=== PATIENT | male | born 1990 | race Caucasian/White ===

== ENCOUNTER 2021-03-02 03:27 | Emergency (ER) | payer OTHER, MEDICAID, SELFPAY ==
[2021-03-02] VITALS (13 sets, daily range): BP systolic 115–157; BP diastolic 68–81; PULSE 83–110; RESP 13–30; TEMP 37; O2SAT 96–100; BMI 27.7
--- NOTE | 2021-03-02 03:38 | DI.RAD.S_ITS ---
PROCEDURE: XR CHEST 2V INDICATIONS: cough, hemoptysis TECHNIQUE: 2 views of the chest were acquired. COMPARISON: None. FINDINGS: Surgical changes and devices: None. Lungs and pleura: Diffuse bilateral lung opacities with central prominence.. No pleural effusions or pneumothorax. Mediastinum: Mediastinal contours are normal. Heart size is normal. Bones and chest wall: No suspicious bony abnormalities. Soft tissues appear unremarkable. IMPRESSION: Bilateral lung multilobar pneumonia. Dictated by: Stella Whipple MD, PhD on 03/02/2021 at 7:32 Approved by: Stella Whipple MD, PhD on 03/02/2021 at 7:32
[2021-03-02 04:06] LABS: COVID19 -Nasal RAPID Negative (Negative)
[2021-03-02 04:10] LABS: Add Manual Diff / Slide Review NO; Basophils Absolute Auto 0 /uL (0-100); Basophils Percent Auto 0.3 % (0-2); Eosinophils Absolute Auto 200 /uL (0-450); Eosinophils Percent Auto 1.5 % (2-4); Hematocrit 43.5 % (41-53); Hemoglobin 14.5 g/dL (13.5-17.5); Lymphocytes Absolute Auto 2600 /uL (1100-4500); Lymphocytes Percent Auto 21.7 % (25-40); Mean Corpuscular HGB Conc 33.4 % (30-36); Mean Corpuscular Hemoglobin 29.1 PG (26-34); Mean Corpuscular Volume 87.1 fL (80-100); Monocytes Absolute Auto 1100 /uL (0-900); Monocytes Percent Auto 9.1 % (3-14); Neutrophils Absolute Auto 8000 /uL (1500-7000); Neutrophils Percent Auto 67.4 % (50-75); Platelet Count 200 X10^3/uL (150-400); Red Blood Cell Count 4.99 X10^6/uL (4.5-5.9); Red Cell Distribution Width 12.8 % (11.6-14.8); White Blood Cell Count 11.8 X10^3/uL (4.5-11.0)
[2021-03-02 04:17] LABS: D Dimer 554 ng/mL (<230)
[2021-03-02 04:22] LABS: Alanine Aminotransferase 34 IU/L (<50); Albumin Globulin Ratio 1.4 (1.0-2.8); Alkaline Phosphatase 78 U/L (38-126); Aspartate Aminotransferase 32 IU/L (17-59); BUN Creatinine Ratio 16.3 (6-22); Blood Urea Nitrogen 13 mg/dL (9-20); Carbon Dioxide 35 mmol/L (22-32); Chloride 95 mmol/L (98-107); Creatine Kinase 115 U/L (55-170); Estimated Glomerular Filt Rate > 60.0 mL/min (>60); Globulin 2.9 g/dL (1.7-4.1); Glucose 102 mg/dL (70-100); HEMOLYSIS < 15 (0-50); Potassium 3.8 mmol/L (3.4-5.1); Sodium 135 mmol/L (137-145); Total Protein 6.9 g/dL (6.3-8.2)
--- NOTE | 2021-03-02 04:29 | ED_ITS ---
HPI - SOB/Dyspnea General Chief Complaint: Shortness of Breath/Dyspnea Stated Complaint: coughing up blood x2 days Time Seen by Provider: 03/02/21 03:38 Source: patient Mode of arrival: Ambulatory Limitations: no limitations History of Present Illness HPI Narrative: 30M daily smoker with history of smoking opioids presents with a chief complaint of about 24 hours of severe shortness of breath, cough and hemoptysis. He states that he overdosed yesterday while using illicit drugs in his truck. He woke surrounded by EMS and police and had been given a large dose of Narcan. He was not taken to [facility] and soon thereafter started developing significant shortness of breath and felt like he was drowning. He was coughing and has produced a large amount of blood. He has had some improvement over the past day or so presents to us under these circumstances. He denies any chest pain. He has had no fever or chills. He has no nausea or vomiting Related Data Previous Rx's Medication Instructions Recorded furosemide 20 mg tablet (Lasix) 20 mg PO DAILY #7 tab 03/02/21 Allergies Allergy/AdvReac Type Severity Reaction Status Date / Time No Known Drug Allergies Allergy Verified 03/02/21 03:42 Review of Systems Review of Systems Narrative: GENERAL: Denies chills, fatigue, malaise, fever, sweats. HEENT: Denies sinus pain, ear pain, sore throat, difficulty swallowing, dizziness. RESPIRATORY: See HPI CARDIOVASCULAR: Denies chest pain, palpitations, orthopnea, edema, GASTROINTESTINAL: Denies nausea, vomiting, abdominal pain, diarrhea, constipation, melena. : Denies dysuria, frequency, incontinence, hematuria, urinary retention. MUSCULOSKELETAL: denies weakness, joint pain, or bony pain SKIN: Denies rash, skin lesions, or other NEUROLOGIC: Denies weakness, headache, numbness, change in speech, confusion, seizures, incoordination. PSYCHIATRIC: No concerning psychosocial issues. 12 point review of systems is negative except for those stated above Patient History Social History Smoking Status: Current every day smoker Smoking Status: Current every day smoker alcohol intake frequency: 0-2 drinks per day Substance Use Type: marijuana and heroin Exam Narrative Exam Narrative: GENERAL: 30 [] year old patient appears stated age. Well- developed patient, in mild distress. HEAD: Atraumatic. Normocephalic. EYES: Pupils equal round and reactive. Extraocular motions intact. No scleral icterus. No injection or drainage. ENT: Nose without bleeding, purulent drainage. Throat without erythema, tonsillar hypertrophy or exudate. Airway patent. NECK: Trachea midline. Non tender CARDIOVASCULAR: Regular rate and rhythm without murmurs, gallops, or rubs. RESPIRATORY: Faint crackles in bilateral bases, no significant increased work of breathing GASTROINTESTINAL: Abdomen soft, non-tender, nondistended. EXTREMITIES: No edema or joint tenderness. BACK: Nontender without deformity or crepitance. No flank tenderness. NEURO: AOx3. SKIN: No rash or erythema of visible areas Initial Vital Signs Initial Vital Signs: Vital Signs Temperature 98.6 F 03/02/21 03:38 Pulse Rate 108 H 03/02/21 03:38 Respiratory Rate 30 H 03/02/21 03:38 Blood Pressure 130/71 03/02/21 03:38 Pulse Oximetry 97 03/02/21 03:38 Course Orders Ordered: Discontinued Medications Furosemide (Furosemide 40 Mg/4 Ml Vial) 40 mg IV NOW ONE Stop: 03/02/21 04:30 Last Admin: 03/02/21 04:53 Dose: 40 mg Documented by: AGUSTINA Nitroglycerin (Nitroglycerin Oint 1 Inch/Gm Oint...G.) 1 inch TOP NOW ONE Stop: 03/02/21 04:30 Last Admin: 03/02/21 04:53 Dose: 1 inch Documented by: AGUSTINA Vital Signs Vital signs: Vital Signs - 8 hr 03/02/21 03:38 03/02/21 04:50 03/02/21 04:53 Temperature 98.6 F Pulse Rate 108 H 83 96 H Respiratory Rate 30 H 20 Blood Pressure 130/71 117/73 130/75 Pulse Oximetry 97 100 03/02/21 05:05 03/02/21 05:06 03/02/21 05:15 Temperature Pulse Rate 83 83 90 Respiratory Rate 28 H 27 H 22 Blood Pressure 117/73 122/75 Pulse Oximetry 100 100 100 03/02/21 05:30 03/02/21 05:45 03/02/21 06:12 Temperature Pulse Rate 85 84 99 H Respiratory Rate 22 24 18 Blood Pressure 122/75 117/74 125/81 Pulse Oximetry 100 100 99 03/02/21 06:15 03/02/21 06:30 03/02/21 06:45 Temperature Pulse Rate 96 H 92 H 95 H Respiratory Rate 13 24 13 Blood Pressure 157/81 H 125/70 115/68 Pulse Oximetry 99 98 99 03/02/21 06:59 Temperature Pulse Rate 110 H Respiratory Rate 22 Blood Pressure Pulse Oximetry 96 MDM - SOB/Dyspnea Lab Data Result diagrams: 03/02/21 03:58 03/02/21 03:58 Labs: Lab Results 03/02/21 03/02/21 03/02/21 Range/Units 03:45 03:58 03:58 WBC 11.8 H (4.5-11.0) X10^3/uL RBC 4.99 (4.5-5.9) X10^6/uL Hgb 14.5 (13.5-17.5) g/dL Hct 43.5 (41-53) % MCV 87.1 (80-100) fL MCH 29.1 (26-34) PG MCHC 33.4 (30-36) % RDW 12.8 (11.6-14.8) % Plt Count 200 (150-400) X10^3/uL Neut % (Auto) 67.4 (50-75) % Lymph % (Auto) 21.7 L (25-40) % [place] % (Auto) 9.1 (3-14) % Eos % (Auto) 1.5 L (2-4) % Baso % (Auto) 0.3 (0-2) % Neut # (Auto) 8000 H (8806-2130) /uL Lymph # (Auto) 2600 (7239-3319) /uL [place] # (Auto) 1100 H (0-900) /uL Eos # (Auto) 200 (0-450) /uL Baso # (Auto) 0 (0-100) /uL D-Dimer 554 H (<230) ng/mL Sodium (137-145) mmol/L Potassium (3.4-5.1) mmol/L Chloride (98-107) mmol/L Carbon Dioxide (22-32) mmol/L BUN (9-20) mg/dL Creatinine (0.66-1.25) mg/dL Estimated GFR (>60) mL/min BUN/Creatinine Ratio (6-22) Glucose (70-100) mg/dL Calcium (8.4-10.2) mg/dL Total Bilirubin (0.2-1.3) mg/dL AST (17-59) IU/L ALT (<50) IU/L Alkaline Phosphatase (38-126) U/L Total Creatine Kinase (55-170) U/L CK-MB (CK-2) (<2.37) ng/mL CK-MB (CK-2) Rel Index (1.5-5.0) % Troponin I (0.01-0.034) ng/mL NT-Pro-B Natriuret Pep (<125) pg/mL Total Protein (6.3-8.2) g/dL Albumin (3.5-5.0) g/dL Globulin (1.7-4.1) g/dL Albumin/Globulin Ratio (1.0-2.8) Procalcitonin (<0.5) ng/mL SARS-CoV-2 (PCR) Negative (Negative) 03/02/21 03/02/21 Range/Units 03:58 03:58 WBC (4.5-11.0) X10^3/uL RBC (4.5-5.9) X10^6/uL Hgb (13.5-17.5) g/dL Hct (41-53) % MCV (80-100) fL MCH (26-34) PG MCHC (30-36) % RDW (11.6-14.8) % Plt Count (150-400) X10^3/uL Neut % (Auto) (50-75) % Lymph % (Auto) (25-40) % [place] % (Auto) (3-14) % Eos % (Auto) (2-4) % Baso % (Auto) (0-2) % Neut # (Auto) (5805-2322) /uL Lymph # (Auto) (5186-3209) /uL [place] # (Auto) (0-900) /uL Eos # (Auto) (0-450) /uL Baso # (Auto) (0-100) /uL D-Dimer (<230) ng/mL Sodium 135 L (137-145) mmol/L Potassium 3.8 (3.4-5.1) mmol/L Chloride 95 L (98-107) mmol/L Carbon Dioxide 35 H (22-32) mmol/L BUN 13 (9-20) mg/dL Creatinine 0.80 (0.66-1.25) mg/dL Estimated GFR > 60.0 (>60) mL/min BUN/Creatinine Ratio 16.3 (6-22) Glucose 102 H (70-100) mg/dL Calcium 9.0 (8.4-10.2) mg/dL Total Bilirubin 1.0 (0.2-1.3) mg/dL AST 32 (17-59) IU/L ALT 34 (<50) IU/L Alkaline Phosphatase 78 (38-126) U/L Total Creatine Kinase 115 (55-170) U/L CK-MB (CK-2) 2.56 H (<2.37) ng/mL CK-MB (CK-2) Rel Index 2.2 (1.5-5.0) % Troponin I < 0.012 (0.01-0.034) ng/mL NT-Pro-B Natriuret Pep 43 (<125) pg/mL Total Protein 6.9 (6.3-8.2) g/dL Albumin 4.0 (3.5-5.0) g/dL Globulin 2.9 (1.7-4.1) g/dL Albumin/Globulin Ratio 1.4 (1.0-2.8) Procalcitonin 0.17 (<0.5) ng/mL SARS-CoV-2 (PCR) (Negative) Imaging Data Chest x-ray: Radiologist's Impression: [address] [address] XRay Report Signed Patient: Camilo Montiel MR#: [id number] : 1990 Acct:[id number] Age/Sex: 30 / M Date of Service: 03/02/21 Loc: ED Accession Number: [id number] ?? Procedure: XR chest 2V Ordering Provider: Nikolas Agrawal D.O. PROCEDURE:? XR CHEST 2V ? INDICATIONS:? cough, hemoptysis ? TECHNIQUE:? 2 views of the chest were acquired.? ? COMPARISON:? None. ? FINDINGS:? ? Surgical changes and devices:? None.? ? Lungs and pleura:? Diffuse bilateral lung opacities with central prominence..? No pleural effusions or pneumothorax.? ? Mediastinum:? Mediastinal contours are normal.? Heart size is normal.? ? Bones and chest wall:? No suspicious bony abnormalities.? Soft tissues appear unremarkable.? ? IMPRESSION:? Bilateral lung multilobar pneumonia. ? ? Dictated by: Stella Whipple MD, PhD on 03/02/2021 at 7:32 ? ? CT scan - chest: Radiologist's Impression: [address] [address] [address] Scan Report Signed Patient: Camilo Montiel MR#: [id number] : 1990 Acct:[id number] Age/Sex: 30 / M Date of Service: 03/02/21 Loc: ED Accession Number: [id number] ?? Procedure: CT angio chest PE protocol Ordering Provider: Nikolas Agrawal D.O. PROCEDURE:? CT ANGIO CHEST PE PROTOCOL ? INDICATIONS:? Shortness of breath, hypoxia, hemoptysis, critical D Dimer ? TECHNIQUE:? After the administration of intravenous contrast, 2 mm thick sections acquired from the pulmonary apices to the posterior costophrenic angles.? 3-dimensional maximum intensity projection (MIP) coronal and sagittal reformats were then acquired through the thorax.? For radiation dose reduction, the following was used:? automated exposure control, adjustment of mA and/or kV according to patient size.? ? COMPARISON:? [facility], CR, XR CHEST 2V, 03/02/2021, 3:37. ? FINDINGS:? Image quality:? Excellent.? ? Pulmonary arteries:? Pulmonary arteries are normal in size, and demonstrate no intraluminal filling defects to suggest central pulmonary embolism.? ? Lungs and pleura:? Patchy consolidation and ground-glass opacities noted in the lungs bilaterally.? No pleural effusions or pneumothorax.? Central and peripheral airways are patent.? ? Mediastinum:? Heart size is normal, without pericardial effusion.? No mediastinal or hilar adenopathy.? Thoracic aorta is normal in caliber and enhancement.? Esophagus is normal in caliber, without hiatal hernia.? ? Bones and chest wall:? No suspicious bony lesions.? Ribs and thoracic spine appear intact throughout.? Thyroid gland is within normal limits.? No axillary or supraclavicular adenopathy.? ? Abdomen:? Visualized upper abdominal solid organs appear normal in the early arterial phase of enhancement.? ? IMPRESSION:? ? 1. No pulmonary embolus. ? 2. Bilateral lung multilobar pneumonia.? ? ? Dictated by: Stella Whipple MD, PhD on 03/02/2021 at 7:27 ? ? Approved by: Stella Whipple MD, PhD on 03/02/2021 at 7:29 ? MDM Narrative Medical decision making narrative: Patient feeling much better after above stated therapies. No need for supplemental oxygen. Chest x-ray and CT both demonstrated large amount of bilateral lung disease, official reads was suggest pneumonia, however patient has no production of off color sputum, no fever, and proceed calcitonin is unremarkable. Patient had no respiratory symptoms prior to his overdose and I am highly suspect that he had a large catecholamine surge after all the Narcan and will we are seeing is a result of a large amount of pulmonary edema. Extensive discussion with the patient about need for follow- up, and return precautions. He is very receptive, wants help and assures me he will take the steps as given Discharge Plan Departure Patient Disposition: Home Clinical Impression: Cough with hemoptysis Dyspnea Qualifiers: Dyspnea type: dyspnea on exertion Qualified Code(s): R06.00 - Dyspnea, unspecified Instructions: Acute Respiratory Distress Syndrome Activity Restrictions/Additional Instructions: *You have been diagnosed with [shortness of breath, cough and hemoptysis, most likely due to pulmonary edema as a consequence of a large Narcan dose from opioid overdose *What to do: *Please continue to take your regular medications as directed. [ ] New medication prescriptions sent to your pharmacy: [ ] [x ] New medication written as a paper prescription [ ] No new medications given *Please follow up with your primary care provider in 2-3 days, call for an appointment. Let them know you were seen in the Emergency Department and that we ask that you be seen in follow up. We will electronically transmit a record of today's note if your PCP is in our system *If you do not have a primary care provider please contact the [facility] Resource line at [phone]. They will ask some questions about your medical history and help get you set up with a doctor in the community. *Return to Emergency Department if you should have any new, worsening or concerning symptoms, such as [fever greater than 101 F, shaking chills, worsening pain, persistent vomiting or other bothersome symptoms] Prescriptions: New furosemide [Lasix] 20 mg tablet 20 mg PO DAILY Qty: 7 RF: 0 Referrals: [facility] [Outside]
[2021-03-02 04:35] LABS: NT-proBNP (BNP-Adult 18+) 43 pg/mL (<125); Troponin I < 0.012 ng/mL (0.01-0.034)
[2021-03-02 04:38] LABS: CKMB % Relative Index 2.2 % (1.5-5.0); Creatine Kinase MB 2.56 ng/mL (<2.37)
[2021-03-02 04:40] LABS: Procalcitonin 0.17 ng/mL (<0.5)
[2021-03-02] MEDS: NITROGLYCERIN OINT 1 INCH/GM OINT...G. TOP (04:53)
[2021-03-02] MEDS: FUROSEMIDE 40 MG/4 ML VIAL IV (04:53)
--- NOTE | 2021-03-02 05:26 | DI.CT.S_ITS ---
PROCEDURE: CT ANGIO CHEST PE PROTOCOL INDICATIONS: Shortness of breath, hypoxia, hemoptysis, critical D Dimer TECHNIQUE: After the administration of intravenous contrast, 2 mm thick sections acquired from the pulmonary apices to the posterior costophrenic angles. 3-dimensional maximum intensity projection (MIP) coronal and sagittal reformats were then acquired through the thorax. For radiation dose reduction, the following was used: automated exposure control, adjustment of mA and/or kV according to patient size. COMPARISON: [facility], CR, XR CHEST 2V, 03/02/2021, 3:37. FINDINGS: Image quality: Excellent. Pulmonary arteries: Pulmonary arteries are normal in size, and demonstrate no intraluminal filling defects to suggest central pulmonary embolism. Lungs and pleura: Patchy consolidation and ground-glass opacities noted in the lungs bilaterally. No pleural effusions or pneumothorax. Central and peripheral airways are patent. Mediastinum: Heart size is normal, without pericardial effusion. No mediastinal or hilar adenopathy. Thoracic aorta is normal in caliber and enhancement. Esophagus is normal in caliber, without hiatal hernia. Bones and chest wall: No suspicious bony lesions. Ribs and thoracic spine appear intact throughout. Thyroid gland is within normal limits. No axillary or supraclavicular adenopathy. Abdomen: Visualized upper abdominal solid organs appear normal in the early arterial phase of enhancement. IMPRESSION: 1. No pulmonary embolus. 2. Bilateral lung multilobar pneumonia. Dictated by: Stella Whipple MD, PhD on 03/02/2021 at 7:27 Approved by: Stella Whipple MD, PhD on 03/02/2021 at 7:29
== END 2021-03-02 07:12 | disposition home or self-care (01) ==
PROVIDERS: Emergency Provider Emergency Medicine
DX: R06.00 Dyspnea, unspecified (principal); R04.2 Hemoptysis; R05.9 Cough, unspecified; Z20.822 Contact with and (suspected) exposure to COVID-19
CPT/HCPCS: 36415; 71046; 71275; 80053; 82550; 82553; 83880; 84145; 84484; 85025; 85379; 87635; 93005; 93010; 96374; 99285; C9803; J1940; Q9967

== ENCOUNTER 2021-03-19 11:30 | Emergency (ER) | payer OTHER, MEDICAID, SELFPAY ==
[2021-03-19 11:30] VITALS: BP 129/66; PULSE 84; RESP 14; TEMP 36.2; O2SAT 99; BMI 26.6
== END 2021-03-19 14:32 | disposition left against medical advice (07) ==
CPT/HCPCS: 99281

== ENCOUNTER 2021-03-25 14:33 | Emergency (ER) | payer OTHER, MEDICAID, SELFPAY ==
[2021-03-25 14:53] VITALS: BP 116/72; PULSE 99; RESP 14; TEMP 36.8; O2SAT 100; BMI 27.7
--- NOTE | 2021-03-25 15:37 | ED.WOUNDLAC ---
HPI - Wound/Laceration <Paco Miranda PA-C - Last Filed: 03/25/21 19:13> General Chief Complaint: Wound/Laceration Stated Complaint: Thinks MRSA Infection, Hands and Face Time Seen by Provider: 03/25/21 14:49 Source: patient Mode of arrival: Ambulatory Limitations: no limitations History of Present Illness HPI narrative: Patient is a 30-year-old male presenting to the emergency department today for an evaluation of a right index finger infection that he noticed 4 days ago. Patient states that he 1st developed a lesion on his left cheek, but he later developed swelling and pain in his right index finger. Additionally, the patient noted the development of swelling and pain on the lateral aspect of his left elbow today. Of note, patient reports 1 episode of MRSA previously. He denies fever, chills, chest pain, shortness of breath, cough, abdominal pain, nausea, vomiting, diarrhea. No other concerns voiced at this time. Related Data Previous Rx's Medication Instructions Recorded furosemide 20 mg tablet (Lasix) 20 mg PO DAILY #7 tab 03/02/21 doxycycline hyclate 100 mg capsule 100 mg PO BID #10 cap 03/25/21 ketorolac 10 mg tablet 10 mg PO TID PRN 5 Days #20 tab 03/25/21 Allergies Allergy/AdvReac Type Severity Reaction Status Date / Time No Known Drug Allergies Allergy Verified 03/25/21 14:53 Review of Systems <Paco Miranda PA-C - Last Filed: 03/25/21 19:13> Constitutional Constitutional: Denies chills, Denies fever(s), Denies lethargy and Denies weakness ENT Ears, Nose, Mouth, and Throat: Denies change in voice, Denies neck pain and Denies sore throat Cardiovascular Cardiovascular: Denies chest pain, Denies irregular heart rhythm, Denies lightheadedness, Denies palpitations, Denies dyspnea, Denies dyspnea on exertion and Denies orthopnea Respiratory Respiratory: Denies cough, Denies dyspnea, Denies dyspnea on exertion and Denies wheezing Gastrointestinal Gastrointestinal: Denies abdominal pain, Denies change in bowel habits, Denies diarrhea, Denies nausea and Denies vomiting Musculoskeletal Musculoskeletal: Denies neck pain Integumentary/Breasts Skin/Breast: Denies pruritus, Reports erythema, Denies rash and Reports wounds Neurologic Neurologic: Denies weakness Endocrine Endocrine: Denies palpitations Allergic/Immunologic Allergic/Immunologic: Denies wheezing Patient History <Paco Miranda PA-C - Last Filed: 03/25/21 19:13> Social History Smoking Status: Current every day smoker Smoking Status: Current every day smoker alcohol intake frequency: holidays/special occasions only Substance Use Type: marijuana and heroin Exam <Paco Miranda PA-C - Last Filed: 03/25/21 19:13> Narrative Exam Narrative: GENERAL: [] year old patient appears stated age. Well-developed patient, in mild distress. HEAD: Atraumatic. Normocephalic. EYES: Pupils equal round and reactive. Extraocular motions intact. No scleral icterus. No injection or drainage. ENT: Nose without bleeding, purulent drainage. Throat without erythema, tonsillar hypertrophy or exudate. Airway patent. NECK: Trachea midline. Non tender CARDIOVASCULAR: Regular rate and rhythm without murmurs, gallops, or rubs. RESPIRATORY: Clear to auscultation. Breath sounds equal bilaterally. No wheezes, rales, or rhonchi. GASTROINTESTINAL: Abdomen soft, non-tender, nondistended. EXTREMITIES: No edema or joint tenderness. BACK: Nontender without deformity or crepitance. No flank tenderness. NEURO: AOx3. SKIN: Erythema, swelling, and scant drainage proximal to the DIP joint of the right 2nd digit with tenderness to palpation. Erythematous an indurated lesion along the lateral aspect the left elbow with scant serous drainage and tenderness to palpation. Swelling and erythema with scant drainage on the left cheek. Initial Vital Signs Initial Vital Signs: Vital Signs Temperature 98.3 F 03/25/21 14:53 Pulse Rate 99 H 03/25/21 14:53 Respiratory Rate 14 03/25/21 14:53 Blood Pressure 116/72 03/25/21 14:53 Pulse Oximetry 100 03/25/21 14:53 <Zi Garcia DO - Last Filed: 03/26/21 07:17> Initial Vital Signs Initial Vital Signs: Vital Signs Temperature 98.3 F 03/25/21 14:53 Pulse Rate 99 H 03/25/21 14:53 Respiratory Rate 14 03/25/21 14:53 Blood Pressure 116/72 03/25/21 14:53 Pulse Oximetry 100 03/25/21 14:53 Course <Paco Miranda PA-C - Last Filed: 03/25/21 19:13> Course Course Narrative: Patient is a 30-year-old male presenting to the emergency department today for an evaluation of a right index finger infection that he noticed 4 days ago. Orders Ordered: Discontinued Medications Ketorolac Tromethamine (Ketorolac 10 Mg Tablet) 10 mg PO NOW ONE Stop: 03/25/21 16:20 Last Admin: 03/25/21 16:26 Dose: 10 mg Documented by: ATAYLOR Lidocaine/Sodium Bicarbonate (Lido 1%/Sod Bicarb 8.4% (10ml) 10 Ml Syringe) 10 ml INJ NOW ONE Stop: 03/25/21 16:16 Last Admin: 03/25/21 16:26 Dose: 10 ml Documented by: ATACHENTEOR Vital Signs Vital signs: Vital Signs - 8 hr 03/25/21 14:53 Temperature 98.3 F Pulse Rate 99 H Respiratory Rate 14 Blood Pressure 116/72 Pulse Oximetry 100 <Zi Garcia DO - Last Filed: 03/26/21 07:17> Orders Ordered: Discontinued Medications Ketorolac Tromethamine (Ketorolac 10 Mg Tablet) 10 mg PO NOW ONE Stop: 03/25/21 16:20 Last Admin: 03/25/21 16:26 Dose: 10 mg Documented by: ATAYLOR Lidocaine/Sodium Bicarbonate (Lido 1%/Sod Bicarb 8.4% (10ml) 10 Ml Syringe) 10 ml INJ NOW ONE Stop: 03/25/21 16:16 Last Admin: 03/25/21 16:26 Dose: 10 ml Documented by: ATACHENTEOR Vital Signs Vital signs: Vital Signs - 8 hr 03/25/21 14:53 Temperature 98.3 F Pulse Rate 99 H Respiratory Rate 14 Blood Pressure 116/72 Pulse Oximetry 100 MDM - Wound/Laceration <Paco Miranda PA-C - Last Filed: 03/25/21 19:13> MDM Narrative Medical decision making narrative: Patient is a 30-year-old male presenting to the emergency department today for an evaluation of a right index finger infection that he noticed 4 days ago. To consider MRSA skin infection. Wound cultures obtained. Digital block performed with lidocaine. Wound on the right index finger was deemed grooved, dressed in Xeroform and gauze bandage prior to discharge. Discussed with patient strict return precautions prior to discharge. Patient was advised to begin oral antibiotic therapy tonight. Discharge Plan Departure Patient Disposition: Home Clinical Impression: Abscess Instructions: DI for Wound Infection Activity Restrictions/Additional Instructions: *You have been diagnosed with wound infection *What to do: *Please continue to take your regular medications as directed. [X] New medication prescriptions sent to your pharmacy: [facility] - Doxycyline, Toradol [ ] New medication written as a paper prescription [ ] No new medications given *Please follow up with your primary care provider in 2-3 days, call for an appointment. Let them know you were seen in the Emergency Department and that we ask that you be seen in follow up. We will electronically transmit a record of today's note if your PCP is in our system *If you do not have a primary care provider please contact the [facility] Resource line at [phone]. They will ask some questions about your medical history and help get you set up with a doctor in the community. *Return to Emergency Department if you should have any new, worsening or concerning symptoms, such as fever greater than 101 F, shaking chills, worsening pain, persistent vomiting, or other bothersome symptoms. Prescriptions: New doxycycline hyclate 100 mg capsule 100 mg PO BID Qty: 10 RF: 0 ketorolac 10 mg tablet 10 mg PO TID PRN (Reason: pain) 5 Days Qty: 20 RF: 0 No Action furosemide [Lasix] 20 mg tablet 20 mg PO DAILY Qty: 7 RF: 0 <Zi Garcia, DO - Last Filed: 03/26/21 07:17> [facility] Dr Garcia Co-Sign Statement: I was available for consultation during this patient's emergency department visit. This chart is signed by myself for administrative purposes only. I did not have direct contact with this patient during this visit. They were seen independently by the APC.
[2021-03-25] MEDS: LIDO 1%/SOD BICARB 8.4% (10ML) 10 ML SYRINGE INJ (16:26)
[2021-03-25] MEDS: KETOROLAC 10 MG TABLET PO (16:26)
== END 2021-03-25 16:51 | disposition home or self-care (01) ==
PROVIDERS: Emergency Provider Physician Assistant
DX: L02.511 Cutaneous abscess of right hand (principal)
CPT/HCPCS: 87070; 87075; 87077; 87147; 87186; 87205; 99283

== ENCOUNTER 2021-05-06 00:57 | Emergency (ER) | payer OTHER, MEDICAID, SELFPAY ==
[2021-05-06 01:15] VITALS: BP 134/82; PULSE 92; RESP 18; TEMP 36.7; O2SAT 100; BMI 27.0
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
[2021-05-06] MEDS: IBUPROFEN 400 MG TABLET 800 MG PO (01:55)
[2021-05-06 02:11] LABS: COVID19 -Nasal RAPID Negative (Negative)
[2021-05-06] MEDS: CLINDAMYCIN 150 MG CAPSULE 300 MG PO (02:35)
[2021-05-06 02:43] VITALS: BP 133/76; PULSE 81; RESP 16; O2SAT 98
== END 2021-05-06 03:02 | disposition home or self-care (01) ==
PROVIDERS: Emergency Provider Emergency Medicine
DX: J02.0 Streptococcal pharyngitis (principal); L02.11 Cutaneous abscess of neck; F17.200 Nicotine dependence, unspecified, uncomplicated; Z86.14 Personal history of Methicillin resistant Staphylococcus aureus infection; Z20.822 Contact with and (suspected) exposure to COVID-19
CPT/HCPCS: 87070; 87075; 87077; 87147; 87186; 87205; 87635; 87880; 99283; C9803

== ENCOUNTER 2021-05-09 13:14 | Emergency (ER) | payer OTHER, MEDICAID, SELFPAY ==
--- NOTE | 2021-05-09 13:40 | ED.GENADULT ---
HPI - General Adult General Chief complaint: Dizziness Stated complaint: DIZZY,LIGHT HEADED Time Seen by Provider: 05/09/21 13:26 Source: patient Mode of arrival: Ambulatory History of Present Illness HPI narrative: Patient is a 30-year-old male. Does have a history of drug abuse. Is homeless. Was seen here couple days ago for an infection on the right side of his neck. He thinks that things have improved. Yesterday he had a couple episodes same with today of a dizzy feeling. Also being lightheaded. Having nausea vomiting associated with that. He thinks that is associated when he looks up. He is having sinus congestion. Is feeling like his ears are full. He denies chest pain. A no shortness of breath. Related Data Previous Rx's Medication Instructions Recorded furosemide 20 mg tablet (Lasix) 20 mg PO DAILY #7 tab 03/02/21 doxycycline hyclate 100 mg capsule 100 mg PO BID #10 cap 03/25/21 clindamycin HCl 300 mg capsule 300 mg PO QID #28 cap 05/06/21 meclizine 25 mg tablet 25 mg PO TID PRN #20 tab 05/09/21 Allergies Allergy/AdvReac Type Severity Reaction Status Date / Time No Known Drug Allergies Allergy Verified 03/25/21 14:53 Review of Systems Constitutional Constitutional: Denies fever(s) ENT Ears, Nose, Mouth, and Throat: Reports system reviewed and no additional complaints, except as documented and Reports as per HPI Cardiovascular Cardiovascular: Reports as per HPI and Reports system reviewed and no additional complaints, except as documented Gastrointestinal Gastrointestinal: Reports as per HPI and Reports system reviewed and no additional complaints, except as documented Integumentary/Breasts Skin/Breast: Reports system reviewed and no additional complaints, except as documented and Reports as per HPI Psychiatric Psychiatric: Reports system reviewed and no additional complaints, except as documented Hematologic/Lymphatic On Anticoagulants: No Allergic/Immunologic Allergic/Immunologic: Reports system reviewed and no additional complaints, except as documented Patient History Medical History Abscess, neck Strep pharyngitis Social History Smoking Status: Current every day smoker Smoking Status: Current every day smoker alcohol intake frequency: holidays/special occasions only Substance Use Type: marijuana and heroin Exam Initial Vital Signs Initial Vital Signs: Vital Signs Temperature 97.7 F 05/09/21 13:41 Pulse Rate 73 05/09/21 13:41 Respiratory Rate 14 05/09/21 13:41 Blood Pressure 129/85 05/09/21 13:41 Pulse Oximetry 100 05/09/21 13:41 Const General: cooperative, comfortable and well developed Limitations: mental status not altered HENMT Head: normal to inspection and normocephalic Ears: TM's normal bilaterally Nose: external nose normal Eyes General: appearance normal, both eyes and all related structures Resp Effort & Inspection: normal respiratory effort Auscultation: clear to auscultation bilaterally Cardio Rate: regular rate Rhythm: regular rhythm Back/Spine/Pelvis Back: normal to inspection Skin Other: In the abscess on the right posterior portion of his neck appears well healed. There is no surrounding erythema. Neuro General: patient alert, patient awake, patient oriented x3 and moves all extremities Cognition: normal cognition Speech: speech normal Gait: normal gait Motor: muscle tone normal throughout Other: Positive Aristides-Hallpike maneuver Extrem General: capillary refill normal Psych Appearance: grossly normal and well kempt Course Orders Ordered: ED Orders 05/09/21 13:37 Basic Metabolic Panel Stat COVID19 -Nasal swab/Pre-Proc Stat Complete Blood Count AUTO DIFF Stat 05/09/21 13:40 EKG-12 Lead Stat Discontinued Medications Meclizine HCl (Meclizine Hcl 12.5 Mg Tablet) 25 mg PO NOW ONE Stop: 05/09/21 14:21 Last Admin: 05/09/21 14:31 Dose: 25 mg Documented by: EDUARD Vital Signs Vital signs: Vital Signs - 8 hr 05/09/21 13:41 Temperature 97.7 F Pulse Rate 73 Respiratory Rate 14 Blood Pressure 129/85 Pulse Oximetry 100 Medical Decision Making Lab Data Lab results reviewed: No I reviewed the patient's lab results. Result diagrams: 05/09/21 13:37 05/09/21 13:37 Labs: Lab Results 05/09/21 05/09/21 05/09/21 Range/Units 13:37 13:37 13:37 WBC 11.8 H (4.5-11.0) X10^3/uL RBC 5.16 (4.5-5.9) X10^6/uL Hgb 14.5 (13.5-17.5) g/dL Hct 42.9 (41-53) % MCV 83.2 (80-100) fL MCH 28.2 (26-34) PG MCHC 33.9 (30-36) % RDW 13.2 (11.6-14.8) % Plt Count 344 (150-400) X10^3/uL Neut % (Auto) 77.6 H (50-75) % Lymph % (Auto) 16.5 L (25-40) % [place] % (Auto) 5.1 (3-14) % Eos % (Auto) 0.3 L (2-4) % Baso % (Auto) 0.5 (0-2) % Neut # (Auto) 9100 H (2492-4524) /uL Lymph # (Auto) 2000 (9463-8348) /uL [place] # (Auto) 600 (0-900) /uL Eos # (Auto) 0 (0-450) /uL Baso # (Auto) 100 (0-100) /uL Sodium 139 (137-145) mmol/L Potassium 4.1 (3.4-5.1) mmol/L Chloride 101 (98-107) mmol/L Carbon Dioxide 32 (22-32) mmol/L BUN 5 L (9-20) mg/dL Creatinine 0.71 (0.66-1.25) mg/dL Estimated GFR > 60.0 (>60) mL/min BUN/Creatinine Ratio 7.0 (6-22) Glucose 113 H (70-100) mg/dL Calcium 9.6 (8.4-10.2) mg/dL SARS-CoV-2 (PCR) Negative (Negative) ECG Data Attestation: I personally reviewed and interpreted this ECG as follows: Prior ECG tracings: not available for review Interpretation: Sinus rhythm Ventricular rate of 75 Normal axis Normal QRS Normal QTC No ST T wave changes MDM Narrative Medical decision making narrative: Patient does have a positional vertigo. Low suspicion for CVA/TIA. Labs are unremarkable. He is scheduled to go to detox. Plain abuse to discharge home with a prescription for meclizine. He was given return precautions and follow-up instructions. He expressed understanding and agreement. Discharge Plan Departure Patient Disposition: Home Clinical Impression: Benign paroxysmal positional vertigo Instructions: Benign Paroxysmal Positional Vertigo Activity Restrictions/Additional Instructions: It is important that she stay hydrated. The medication that you were given a prescription for today is an as-needed medicine for the vertigo. Take it as directed. Contact your primary doctor for a follow-up. Return emergency department for any new or worsening symptoms Prescriptions: New meclizine 25 mg tablet 25 mg PO TID PRN (Reason: dizziness) Qty: 20 0RF No Action doxycycline hyclate 100 mg capsule 100 mg PO BID Qty: 10 0RF furosemide [Lasix] 20 mg tablet 20 mg PO DAILY Qty: 7 0RF clindamycin HCl 300 mg capsule 300 mg PO QID Qty: 28 0RF
[2021-05-09 13:41] VITALS: BP 129/85; PULSE 73; RESP 14; TEMP 36.5; O2SAT 100; BMI 61.1
[2021-05-09 13:50] LABS: Add Manual Diff / Slide Review NO; Basophils Absolute Auto 100 /uL (0-100); Basophils Percent Auto 0.5 % (0-2); Eosinophils Absolute Auto 0 /uL (0-450); Eosinophils Percent Auto 0.3 % (2-4); Hematocrit 42.9 % (41-53); Hemoglobin 14.5 g/dL (13.5-17.5); Lymphocytes Absolute Auto 2000 /uL (1100-4500); Lymphocytes Percent Auto 16.5 % (25-40); Mean Corpuscular HGB Conc 33.9 % (30-36); Mean Corpuscular Hemoglobin 28.2 PG (26-34); Mean Corpuscular Volume 83.2 fL (80-100); Monocytes Absolute Auto 600 /uL (0-900); Monocytes Percent Auto 5.1 % (3-14); Neutrophils Absolute Auto 9100 /uL (1500-7000); Neutrophils Percent Auto 77.6 % (50-75); Platelet Count 344 X10^3/uL (150-400); Red Blood Cell Count 5.16 X10^6/uL (4.5-5.9); Red Cell Distribution Width 13.2 % (11.6-14.8); White Blood Cell Count 11.8 X10^3/uL (4.5-11.0)
[2021-05-09 14:07] LABS: Blood Urea Nitrogen 5 mg/dL (9-20); Calcium 9.6 mg/dL (8.4-10.2); Carbon Dioxide 32 mmol/L (22-32); Chloride 101 mmol/L (98-107); Estimated Glomerular Filt Rate > 60.0 mL/min (>60); Glucose 113 mg/dL (70-100); HEMOLYSIS < 15 (0-50); Potassium 4.1 mmol/L (3.4-5.1); Sodium 139 mmol/L (137-145)
[2021-05-09 14:20] LABS: COVID19 -Nasal RAPID Negative (Negative)
[2021-05-09] MEDS: MECLIZINE HCL 12.5 MG TABLET 25 MG PO (14:31)
[2021-05-09 14:59] VITALS: BP 127/84; PULSE 85; RESP 14; O2SAT 100
== END 2021-05-09 15:01 | disposition home or self-care (01) ==
PROVIDERS: Emergency Provider Emergency Medicine
DX: R42 Dizziness and giddiness (principal); Z59.00 Homelessness unspecified; F17.210 Nicotine dependence, cigarettes, uncomplicated; Z20.822 Contact with and (suspected) exposure to COVID-19
CPT/HCPCS: 36415; 80048; 85025; 87635; 93005; 99283; C9803

== ENCOUNTER 2021-12-08 19:33 | Emergency (ER) | payer OTHER, MEDICAID, SELFPAY ==
[2021-12-08 20:06] VITALS: BP 152/66; PULSE 107; RESP 18; TEMP 36; O2SAT 99; BMI 27.0
[2021-12-08] MEDS: DOXYCYCLINE HYCLATE 100 MG TABLET PO (20:18)
[2021-12-08] MEDS: LIDOCAINE 1% W/EPI 1 ML SUBCUT (20:18)
--- NOTE | 2021-12-08 20:37 | ED_ITS ---
HPI - Skin/Abscess/Foreign Bdy General Chief complaint: Skin/Abscess/Foreign Body Stated complaint: rt lower arm, red, hot, swelling Time Seen by Provider: 12/08/21 20:02 History of Present Illness HPI narrative: 31-year-old male smoker with history of methamphetamine use presents with a chief complaint of pain swelling and redness to the right lateral forearm over the past few days. He denies any injection in this region. He states that he is had no fever or chills but just increasing pain, redness and swelling. Denies any injury or trauma. He is had no runny nose, sore throat or cough and denies any abdominal pain Related Data Previous Rx's Medication Instructions Recorded furosemide 20 mg tablet (Lasix) 20 mg PO DAILY #7 tabs 03/02/21 doxycycline hyclate 100 mg capsule 100 mg PO BID #10 caps 03/25/21 clindamycin HCl 300 mg capsule 300 mg PO QID #28 caps 05/06/21 meclizine 25 mg tablet 25 mg PO TID PRN dizziness #20 tabs 05/09/21 doxycycline hyclate 100 mg tablet 100 mg PO BID #20 tabs 12/08/21 Allergies Allergy/AdvReac Type Severity Reaction Status Date / Time No Known Drug Allergies Allergy Verified 12/08/21 20:13 Review of Systems Review of Systems Narrative: GENERAL: See HPI HEENT: Denies sinus pain, ear pain, sore throat, difficulty swallowing, dizz iness. RESPIRATORY: Denies dyspnea, cough, wheezing, hemoptysis, sputum. CARDIOVASCULAR: Denies chest pain, palpitations, orthopnea, edema, GASTROINTESTINAL: Denies nausea, vomiting, abdominal pain, diarrhea, constipation, melena. : Denies dysuria, frequency, incontinence, hematuria, urinary retention. MUSCULOSKELETAL: See HPI SKIN: The HPI NEUROLOGIC: Denies weakness, headache, numbness, change in speech, confusion, seizures, incoordination. PSYCHIATRIC: No concerning psychosocial issues. 12 point review of systems is negative except for those stated above Patient History Medical History Abscess, neck Strep pharyngitis Social History Smoking Status: Current every day smoker Smoking Status: Current every day smoker alcohol intake frequency: holidays/special occasions only Substance Use Type: marijuana, heroin and methamphetamine Exam Narrative Exam Narrative: GENERAL: [31] year old patient appears stated age. Well-developed patient, in mild distress. HEAD: Atraumatic. Normocephalic. EYES: Pupils equal round and reactive. Extraocular motions intact. No scleral icterus. No injection or drainage. ENT: Nose without bleeding, purulent drainage. Throat without erythema, tonsillar hypertrophy or exudate. Airway patent. NECK: Trachea midline. Non tender CARDIOVASCULAR: Regular rate and rhythm without murmurs, gallops, or rubs. RESPIRATORY: Clear to auscultation. Breath sounds equal bilaterally. No wheezes, rales, or rhonchi. GASTROINTESTINAL: Abdomen soft, non-tender, nondistended. EXTREMITIES: Right lateral forearm with redness, pain and swelling and a 2 x 3 cm area of fluctuance centrally located without any spontaneous draining. He has full range of motion of the hand and wrist and no pain on flexion or extension nor with pronation and supination at the elbow, septic arthritis unlikely. BACK: Nontender without deformity or crepitance. No flank tenderness. NEURO: AOx3. SKIN: No rash or erythema of visible areas Initial Vital Signs Initial Vital Signs: Vital Signs Temperature 96.8 F L 12/08/21 20:06 Pulse Rate 107 H 12/08/21 20:06 Respiratory Rate 18 12/08/21 20:06 Blood Pressure 152/66 H 12/08/21 20:06 Pulse Oximetry 99 12/08/21 20:06 Oxygen Delivery Method 12/08/21 20:06 Procedures Abscess I/D I&D #1: Site: upper extremity Side (if applicable): right Local Anesthetic: lidocaine 1% Amount of anesthesia used (mL): 6 Technique: incised with #11 blade Amount of fluid expressed (mL): 8 Irrigation: Yes Packing used?: none Course Orders Ordered: ED Orders 12/08/21 20:12 Consult to [employer] - [employer] Gun Operator Stat 12/08/21 20:21 Wound Culture and Gram Stain Stat Discontinued Medications Doxycycline Hyclate (Doxycycline Hyclate 100 Mg Tablet) 100 mg PO NOW ONE Stop: 12/08/21 20:10 Last Admin: 12/08/21 20:18 Dose: 100 mg Documented By: [facility] Lidocaine/Epinephrine (Lidocaine 1% W/Epi) 1 ml SUBCUT NOW ONE Stop: 12/08/21 20:10 Last Admin: 12/08/21 20:18 Dose: 1 ml Documented By: [facility] Vital Signs Vital signs: Vital Signs - 8 hr 12/08/21 20:06 Temperature 96.8 F L Pulse Rate 107 H Respiratory Rate 18 Blood Pressure 152/66 H Pulse Oximetry 99 Oxygen Delivery Method Room Air Discharge Plan Departure Patient Disposition: Home Clinical Impression: Cellulitis of arm, right, Abscess of right arm Instructions: DI for Cellulitis -- Adult, DI for Skin Abscess Activity Restrictions/Additional Instructions: *You have been diagnosed with [right arm abscess with cellulitis and incision and drainage] *What to do: *Please continue to take your regular medications as directed. [x ] New medication prescriptions sent to your pharmacy: [[facility] [ ] New medication written as a paper prescription [ ] No new medications given *Please follow up with your primary care provider in 2-3 days, call for an appointment. Let them know you were seen in the Emergency Department and that we ask that you be seen in follow up. We will electronically transmit a record of today's note if your PCP is in our system *If you do not have a primary care provider please contact the [facility] Resource line at [phone]. They will ask some questions about your medical history and help get you set up with a doctor in the community. *Return to Emergency Department if you should have any new, worsening or concerning symptoms Prescriptions: New doxycycline hyclate 100 mg tablet 100 mg PO BID Qty: 20 0RF No Action doxycycline hyclate 100 mg capsule 100 mg PO BID Qty: 10 0RF meclizine 25 mg tablet 25 mg PO TID PRN (Reason: dizziness) Qty: 20 0RF furosemide [Lasix] 20 mg tablet 20 mg PO DAILY Qty: 7 0RF clindamycin HCl 300 mg capsule 300 mg PO QID Qty: 28 0RF Visit Report Forms: Patient Portal/API
--- NOTE | 2021-12-08 20:46 | PC.NURSE ---
I&D performed, moderate amount of puss removed by provider. Culture obtained and sent to lab. Arm cleaned and dressing placed.
== END 2021-12-08 20:47 | disposition home or self-care (01) ==
PROVIDERS: Emergency Provider Emergency Medicine
DX: L03.113 Cellulitis of right upper limb (principal); L02.413 Cutaneous abscess of right upper limb
CPT/HCPCS: 10060; 87070; 87075; 87077; 87147; 87205; 99283

== ENCOUNTER 2021-12-26 23:54 | Emergency (ER) | payer OTHER, MEDICAID, SELFPAY ==
[2021-12-27] VITALS: BP 130/71; PULSE 91; RESP 20; TEMP 36.6; O2SAT 97
--- NOTE | 2021-12-27 01:48 | ED.SKABFB ---
HPI - Skin/Abscess/Foreign Bdy General Chief complaint: Skin/Abscess/Foreign Body Stated complaint: right arm pain Time Seen by Provider: 12/27/21 01:45 Source: patient Mode of arrival: Ambulatory History of Present Illness HPI narrative: Patient is a 31-year-old male with history of methamphetamine abuse presents with right arm redness and swelling. He was seen evaluated here 12/08/2021 after he had an I and D the same location. He was put on a course of doxycycline which she says helped however it back. He denies fever or chills. Did have a bigger and still draining. Related Data Previous Rx's Medication Instructions Recorded furosemide 20 mg tablet (Lasix) 20 mg PO DAILY #7 tabs 03/02/21 doxycycline hyclate 100 mg capsule 100 mg PO BID #10 caps 03/25/21 clindamycin HCl 300 mg capsule 300 mg PO QID #28 caps 05/06/21 meclizine 25 mg tablet 25 mg PO TID PRN dizziness #20 tabs 05/09/21 doxycycline hyclate 100 mg tablet 100 mg PO BID #20 tabs 12/08/21 cephalexin 500 mg capsule 500 mg PO Q8H #30 caps 12/27/21 Allergies Allergy/AdvReac Type Severity Reaction Status Date / Time No Known Drug Allergies Allergy Verified 12/08/21 20:13 Review of Systems Review of Systems Narrative: GENERAL: Denies chills,fever HEENT: Denies throat pain RESPIRATORY: Denies dyspnea, cough, wheezing CARDIOVASCULAR: Denies chest pain, palpitations GASTROINTESTINAL: Denies nausea, vomiting MUSCULOSKELETAL: Denies extremity pain, injury SKIN: See HPI NEUROLOGIC: Denies weakness, dizziness, headache, numbness 8 point review of systems is negative except for those stated above and HPI Patient History Medical History Abscess, neck Strep pharyngitis Social History Smoking Status: Current every day smoker Smoking Status: Current every day smoker alcohol intake frequency: holidays/special occasions only Substance Use Type: marijuana, heroin and methamphetamine Exam Initial Vital Signs Initial Vital Signs: Vital Signs Temperature 97.9 F 12/27/21 00:00 Pulse Rate 91 H 12/27/21 00:00 Respiratory Rate 20 12/27/21 00:00 Blood Pressure 130/71 12/27/21 00:00 Pulse Oximetry 97 12/27/21 00:00 Oxygen Delivery Method 12/27/21 00:00 GENERAL: Well-appearing, well-nourished and in no acute distress. CARDIOVASCULAR: peripheral pulses in tact, cap refill <2 sec RESPIRATORY: No respiratory distress, speaks in full sentences without difficulty EXTREMITIES: Normal range of motion, no clubbing or edema. Neurovascularly intact NEUROLOGICAL: Cranial nerves II through XII grossly intact. Normal gait and speech. SKIN: Right arm erythema 12 cm x 6 cm 2 small areas of drainage no significant fluctuation Course Vital Signs Vital signs: Vital Signs - 8 hr 12/27/21 00:00 Temperature 97.9 F Pulse Rate 91 H Respiratory Rate 20 Blood Pressure 130/71 Pulse Oximetry 97 Oxygen Delivery Method Room Air MDM - Skin/Abscess/Foreign Bdy MDM Narrative Medical decision making narrative: Previous culture shows strep. Will actually put him on Keflex but a new culture is pending. Overall he does not appear septic localized to erythema. No need for new I and D there is really no fluctuation, minimal drainage Discharge Plan Departure Patient Disposition: Home Clinical Impression: Cellulitis Instructions: DI for Cellulitis -- Adult Activity Restrictions/Additional Instructions: *You have been diagnosed with cellulitis *What to do: Do not inject into her arm keep area clean and dry with soap and water *Continue to take medications as directed Keflex 500 mg 3 times a day for 10 days *Follow up with your primary care provider in 2-3 days or call [phone] *Return to ER if you should have redness fever swelling pain or any new, worsening or concerning symptoms Prescriptions: New cephalexin 500 mg capsule 500 mg PO Q8H Qty: 30 0RF No Action doxycycline hyclate 100 mg capsule 100 mg PO BID Qty: 10 0RF meclizine 25 mg tablet 25 mg PO TID PRN (Reason: dizziness) Qty: 20 0RF doxycycline hyclate 100 mg tablet 100 mg PO BID Qty: 20 0RF furosemide [Lasix] 20 mg tablet 20 mg PO DAILY Qty: 7 0RF clindamycin HCl 300 mg capsule 300 mg PO QID Qty: 28 0RF
[2021-12-27] MEDS: cephALEXin 250 MG PREPACK 1 BOTTLE MISC (01:59)
== END 2021-12-27 02:03 | disposition home or self-care (01) ==
PROVIDERS: Emergency Provider Emergency Medicine
DX: L03.113 Cellulitis of right upper limb (principal)
CPT/HCPCS: 87070; 87075; 87077; 87147; 87205; 99281; 99283

== ENCOUNTER 2023-09-09 18:58 | Emergency (ER) | payer OTHER, MEDICAID, SELFPAY ==
[2023-09-09 19:14] VITALS: BP 143/80; PULSE 85; RESP 18; TEMP 36.6; O2SAT 98; BMI 28.8
== END 2023-09-09 20:25 | disposition left against medical advice (07) ==
PROVIDERS: Emergency Provider Emergency Medicine
DX: R22.0 Localized swelling, mass and lump, head (principal)
CPT/HCPCS: 99281

== ENCOUNTER 2024-10-19 18:00 | Observation (INO) | payer OTHER, SELFPAY ==
[2024-10-19 18:16] VITALS: BP 123/72; PULSE 96; RESP 16; TEMP 36.1; O2SAT 100; BMI 25.9
--- NOTE | 2024-10-19 18:37 | DI.US.S_ITS ---
PROCEDURE: US PERIPH VENOUS LOW EXTREM LT INDICATIONS: edema asymetric TECHNIQUE: Real-time imaging, as well as color and pulse Doppler interrogation, were performed of the lower extremity deep veins from the inguinal ligament to the popliteal fossa, with documentation of the visualized calf veins. COMPARISON: None. FINDINGS: The common femoral, femoral, popliteal, and the visualized calf veins are normally compressible, and free of intraluminal thrombus. Color and pulse Doppler demonstrate normal phasic intraluminal flow. There is normal augmentation response to distal compression maneuver. IMPRESSION: No findings of DVT in visualized left lower extremity veins. Dictated by: Jacques Martins M.D. on 10/19/2024 at 20:43 Approved by: Jacques Martins M.D. on 10/19/2024 at 20:43
[2024-10-19 18:55] VITALS: PULSE 100; O2SAT 97
[2024-10-19 18:56] VITALS: BP 121/80; PULSE 102; RESP 16; O2SAT 97
[2024-10-19 19:34] VITALS: TEMP 37.1
[2024-10-19 19:43] LABS: Add Manual Diff / Slide Review NO; Basophils Absolute Auto 0 /uL (0-100); Basophils Percent Auto 0.3 % (0-2); Eosinophils Absolute Auto 0 /uL (0-450); Eosinophils Percent Auto 0.2 % (2-4); Hematocrit 37.5 % (41-53); Hemoglobin 12.9 g/dL (13.5-17.5); Lymphocytes Absolute Auto 1300 /uL (1100-4500); Lymphocytes Percent Auto 11.8 % (25-40); Mean Corpuscular HGB Conc 34.3 % (30-36); Mean Corpuscular Hemoglobin 29.3 PG (26-34); Mean Corpuscular Volume 85.4 fL (80-100); Monocytes Absolute Auto 600 /uL (0-900); Monocytes Percent Auto 5.6 % (3-14); Neutrophils Absolute Auto 9300 /uL (1500-7000); Neutrophils Percent Auto 82.1 % (50-75); Platelet Count 168 X10^3/uL (150-400); Red Blood Cell Count 4.39 X10^6/uL (4.5-5.9); White Blood Cell Count 11.3 X10^3/uL (4.5-11.0)
[2024-10-19 19:47] LABS: Lactate (Lactic Acid) 0.9 mmol/L (0.7-2.1)
[2024-10-19 19:48] LABS: Alanine Aminotransferase 155 IU/L (<50); Albumin 3.7 g/dL (3.5-5.0); Albumin Globulin Ratio 1.2 (1.0-2.8); Alkaline Phosphatase 122 U/L (38-126); Aspartate Aminotransferase 77 IU/L (17-59); BUN Creatinine Ratio 13.8 (6-22); Bilirubin Total 0.6 mg/dL (0.2-1.3); Blood Urea Nitrogen 11 mg/dL (9-20); Calcium 8.5 mg/dL (8.4-10.2); Carbon Dioxide 26 mmol/L (22-32); Chloride 98 mmol/L (98-107); Estimated Glomerular Filt Rate > 60 mL/min (>60); Glucose 118 mg/dL (70-99); HEMOLYSIS < 15 (0-50); Potassium 3.6 mmol/L (3.4-5.1); Sodium 131 mmol/L (137-145); Total Protein 6.7 g/dL (6.3-8.2)
[2024-10-19 20:05] LABS: Procalcitonin 0.156 ng/mL (<0.5)
--- NOTE | 2024-10-19 20:44 | ED_ITS ---
HPI - Skin/Abscess/Foreign Bdy General Chief complaint: Skin/Abscess/Foreign Body Stated complaint: Lt leg pain, celulitis Time Seen by Provider: 10/19/24 18:37 Source: patient Mode of arrival: Ambulatory History of Present Illness HPI narrative: 33-year-old gentleman with a history of methamphetamine and opioid use disorder, smokes, not currently injecting, is interested in treatment and currently has a bed date [facility] within the next weeks. He presents today complaining of increasing pain redness and swelling in the left lower extremity. He does not describe trauma, he has not been injecting in the area no open sores. He is having trouble walking on the leg because it is so painful. He currently does not have stable housing arrangements but is hoping to be able to get to [place] where he can stay with his father. Not complaining of chest pain, low-grade fevers, no nausea vomiting or diarrhea Related Data Previous Rx's Medication Instructions Recorded furosemide 20 mg tablet (Lasix) 20 mg PO DAILY #7 tabs 03/02/21 doxycycline hyclate 100 mg capsule 100 mg PO BID #10 caps 03/25/21 clindamycin HCl 300 mg capsule 300 mg PO QID #28 caps 05/06/21 meclizine 25 mg tablet 25 mg PO TID PRN dizziness #20 tabs 05/09/21 doxycycline hyclate 100 mg tablet 100 mg PO BID #20 tabs 12/08/21 cephalexin 500 mg capsule 500 mg PO Q8H #30 caps 12/27/21 Allergies Allergy/AdvReac Type Severity Reaction Status Date / Time No Known Drug Allergies Allergy Verified 10/19/24 18:16 Review of Systems Review of Systems Narrative: Pertinent positive and negative findings as per HPI Patient History Medical History Abscess, neck Strep pharyngitis Smoking Status: Current every day smoker tobacco type: cigarettes alcohol intake frequency: holidays/special occasions only Exam Initial Vital Signs Initial Vital Signs: Vital Signs Temperature 97.0 F L 10/19/24 18:16 Pulse Rate 96 H 10/19/24 18:16 Respiratory Rate 16 10/19/24 18:16 Blood Pressure 123/72 10/19/24 18:16 Pulse Oximetry 100 10/19/24 18:16 Oxygen Delivery Method Room Air 10/19/24 18:16 General: Healthy appearing, in no acute distress. Able to give a complete and coherent history. Well-nourished well-developed HEENT: Moist mucous membranes, normal sclera with reactive pupils, Respiratory: Lungs are clear to auscultation, no wheezing no rales no rhonchi. Full and symmetrical air movement Cardiac: Mild tachycardia but otherwiseRegular rate and rhythm no murmurs no bruits Abdomen: Soft, nontender, no rebound or guarding, no flank pain Neurologic: Grossly neurologically intact with no obvious asymmetries or abnormalities Extremities: left lower extremity with significant swelling and erythema starting around the ankle extending to the knee with lymphangitic streaking up the thigh. Mild inguinal adenopathy. No obvious abscess appreciated no obvious injection sites appreciated Psych: Cooperative, appropriate insight and affect Course Orders Ordered: ED Orders 10/19/24 18:37 US periph venous low extrem lt Stat 10/19/24 19:25 Complete Blood Count AUTO DIFF Stat Comprehensive Metabolic Panel Stat Lactate (Lactic Acid) Stat Procalcitonin Stat 10/19/24 19:30 Blood Culture Stat Vital Signs Vital signs: Vital Signs - 8 hr 10/19/24 18:16 10/19/24 19:34 Temperature 97.0 F L 98.7 F Pulse Rate 96 H Respiratory Rate 16 Blood Pressure 123/72 Pulse Oximetry 100 Oxygen Delivery Method Room Air MDM - Skin/Abscess/Foreign Bdy Lab Data 10/19/24 19:25 10/19/24 19:25 Labs: Lab Results 10/19/24 Range/Units 19:25 WBC 11.3 H (4.5-11.0) X10^3/uL RBC 4.39 L (4.5-5.9) X10^6/uL Hgb 12.9 L (13.5-17.5) g/dL Hct 37.5 L (41-53) % MCV 85.4 (80-100) fL MCH 29.3 (26-34) PG MCHC 34.3 (30-36) % RDW 13.0 (11.6-14.8) % Plt Count 168 (150-400) X10^3/uL Neut % (Auto) 82.1 H (50-75) % Lymph % (Auto) 11.8 L (25-40) % [place] % (Auto) 5.6 (3-14) % Eos % (Auto) 0.2 L (2-4) % Baso % (Auto) 0.3 (0-2) % Neut # (Auto) 9300 H (9569-4933) /uL Lymph # (Auto) 1300 (4623-5292) /uL [place] # (Auto) 600 (0-900) /uL Eos # (Auto) 0 (0-450) /uL Baso # (Auto) 0 (0-100) /uL Sodium 131 L (137-145) mmol/L Potassium 3.6 (3.4-5.1) mmol/L Chloride 98 (98-107) mmol/L Carbon Dioxide 26 (22-32) mmol/L BUN 11 (9-20) mg/dL Creatinine 0.80 (0.66-1.25) mg/dL Estimated GFR > 60 (>60) mL/min BUN/Creatinine Ratio 13.8 (6-22) Glucose 118 H (70-99) mg/dL Lactate 0.9 (0.7-2.1) mmol/L Calcium 8.5 (8.4-10.2) mg/dL Total Bilirubin 0.6 (0.2-1.3) mg/dL AST 77 H (17-59) IU/L ALT 155 H (<50) IU/L Alkaline Phosphatase 122 (38-126) U/L Total Protein 6.7 (6.3-8.2) g/dL Albumin 3.7 (3.5-5.0) g/dL Globulin 3.0 (1.7-4.1) g/dL Albumin/Globulin Ratio 1.2 (1.0-2.8) Procalcitonin 0.156 (<0.5) ng/mL MDM Narrative Medical decision making narrative: CC: Left lower leg pain and swellingComplicating co-morbidities: housing instability, methamphetamine and fentanyl use disorder Data collected from: patient Social determinants of health that may influence the patients condition: states he has a bed date for rehab with [facility] coming up in the near future Differential considered: cellulitis, sepsis, DVT Exam documented above, pertinent findings include: patient is alert and appropriate. Pain is adequately controlled at this time. Left lower leg is significantly swollen, warm to the touch, lymphangitic streaking, no obvious wound source to explain with the cellulitis started Lab Test results independently reviewed as above. Pertinent findings: CBC shows leukocytosis at 11.3 with neutrophils at 82.1. Minor anemia at 12.9 and 37.5 chemistries are notable for minimally elevated AST and ALT at 77 and 155 respectively procalcitonin is not significantly elevated lactic acid is not elevated Imaging studies independently reviewed: ultrasound of the extremity does not show DVT Treatments: patient will be started on ceftriaxone and vancomycin Discussion: 33-year-old gentleman with left lower extremity cellulitis, lymphangitic streaking not currently showing signs of sepsis but given the degree of erythema and the rapidly progressive lymphangitis, IV antibiotics are indicated. We will plan on hospital admission, care is reviewed with the hospitalist service. Patient does not believe he will have significant issues with withdrawal from either his methamphetamine or his fentanyl. Told him that we are able to help with symptomatic withdrawal should it be required. He does note that over the last 3 days he has had dramatically increasing fatigue to the point that he has been unable to keep his eyes open. He also notes that he has not had any methamphetamine for the last 4 days. Discharge Plan Departure Patient Disposition: Admitted as Observation Clinical Impression: Methamphetamine use disorder, severe, Opioid use disorder Cellulitis Qualifiers: Site of cellulitis: extremity Site of cellulitis of extremity: lower extremity Laterality: left Qualified Code(s): L03.116 - Cellulitis of left lower limb Admit Date/Time: 10/19/24 20:57 Admit Provider: Maxim Johnston
[2024-10-19 21:06] VITALS: BP 123/68; PULSE 87; RESP 16; O2SAT 98
[2024-10-19] MEDS: cefTRIAXone 2,000 MG in SODIUM CHLORIDE 0.9% 100 ML 200 MG IV (21:30)
--- NOTE | 2024-10-19 21:51 | P.HP_ITS ---
History of Present Illness History of Present Illness Date Patient Seen: 10/19/24 Chief complaint: Lt leg pain, celulitis Narrative: 33 y/o with PMH of opiates and methamphetamine use, smoking, prior visits to ER with abscesses and cellulitis or arm and leg, came with left leg swelling, redness and pain. Denies recent injuries or drug injections. It started at ankle and overnight spread up to thigh. Afebrile, not septic. CBC shows leukocytosis at 11.3 with neutrophils at 82.1. Minor anemia at 12.9 and 37.5, minimally elevated AST and ALT at 77 and 155 respectively, procalcitonin is not significantly elevated, lactic acid is not elevated. LLE venous doppler negative for DVT. Admitted to medicine with LLE cellulitis requiring IV antibiotics. [facility] Medical History Abscess, neck Strep pharyngitis Social History household members: none Smoking Status: Current every day smoker alcohol intake: current Meds Home Medications and Allergies Home Medications Medication Instructions Recorded Confirmed Type No Known Home Medications 10/19/24 10/19/24 History Allergies Allergy/AdvReac Type Severity Reaction Status Date / Time No Known Drug Allergies Allergy Verified 10/19/24 18:16 Review of Systems Review of Systems Narrative: General - w/o fever or chills. Malaise. EXT - Lt leg swelling, redness, pain CVS - w/o chest pain RS - w/o shortness of breath Exam Vital Signs (past 8 hours): - 10/19/24 18:16 10/19/24 18:55 10/19/24 18:56 Temperature 97.0 F L Pulse Rate 96 H 100 H 102 H Respiratory Rate 16 Blood Pressure 123/72 Pulse Oximetry 100 97 97 Oxygen Delivery Method Room Air 10/19/24 18:56 10/19/24 19:34 10/19/24 21:06 Temperature 98.7 F Pulse Rate Respiratory Rate 16 Blood Pressure 121/80 123/68 Pulse Oximetry Oxygen Delivery Method 10/19/24 21:06 Temperature Pulse Rate 87 Respiratory Rate 16 Blood Pressure Pulse Oximetry 98 Oxygen Delivery Method Oxygen Delivery Method Room Air Narrative Exam Narrative: General - in no distress Ext - Extensive, circumferential LLE cellulitis with lymphangitic streaks reaching the groin CVS - RRR RS - CTA Neuro - lucid, w/o deficits, mild anxiety Objective Imaging Venous US: Radiologist's impression: No findings of DVT in visualized left lower extremity veins. Labs 10/19/24 19:25 10/19/24 19:25 Labs: Laboratory Results - last 24 hr 10/19/24 19:25 WBC 11.3 H RBC 4.39 L Hgb 12.9 L Hct 37.5 L MCV 85.4 MCH 29.3 MCHC 34.3 RDW 13.0 Plt Count 168 Neut % (Auto) 82.1 H Lymph % (Auto) 11.8 L [place] % (Auto) 5.6 Eos % (Auto) 0.2 L Baso % (Auto) 0.3 Neut # (Auto) 9300 H Lymph # (Auto) 1300 [place] # (Auto) 600 Eos # (Auto) 0 Baso # (Auto) 0 Sodium 131 L Potassium 3.6 Chloride 98 Carbon Dioxide 26 BUN 11 Creatinine 0.80 Estimated GFR > 60 BUN/Creatinine Ratio 13.8 Glucose 118 H Lactate 0.9 Calcium 8.5 Total Bilirubin 0.6 AST 77 H ALT 155 H Alkaline Phosphatase 122 Total Protein 6.7 Albumin 3.7 Globulin 3.0 Albumin/Globulin Ratio 1.2 Procalcitonin 0.156 Assessment & Plan Assessment and plan (1) Left leg cellulitis: Status: Acute (2) Opioid use disorder: Status: Acute (3) Methamphetamine use disorder, severe: Status: Acute (4) Smoker: Status: Acute Assessment & Plan narrative: LLE Cellulitis - extensive - vancomycin, ceftriaxone - elevate leg - pain management problematic due to active opiate use Polysubstance use - most recent, today, fentanyl - apparently has a place in detox center next week - nicotine patch DVT prophylaxis - Lovenox Patient consented to telemedicine, audio-video encounter with RN assisting with exam and electronic stethoscope. Patient located at [place], [place]. Provider located in [place]. Time-Based Coding :: [TOTAL MINUTES] spent with patient and on the chart (including review of chart, obtaining history, exam, reviewing outside data, placing orders, documenting exam and treatment plan, and counseling patient) on [DATE].
[2024-10-19 21:57] VITALS: BMI 27.6
[2024-10-19] MEDS: VANCOMYCIN 2,000 MG/400 ML PIGGYBACK 200 MG IV (22:48)
[2024-10-19 23:05] VITALS: BP 115/79; PULSE 85; RESP 19; TEMP 36.6; O2SAT 98
--- NOTE | 2024-10-19 23:27 | PC.NURSE ---
Pt belongings all given to coordinator (3 bags). pt states the last time he used fentanyl was today around 1400, pt educated on drug substance abuse policy.
[2024-10-20] MEDS: OXYCODONE IR 5 MG TABLET PO (00:31)
[2024-10-20] MEDS: IBUPROFEN 400 MG TABLET PO (00:33)
--- NOTE | 2024-10-20 00:43 | PC.WOUNDPHOT ---
LLE LLE LLE
[2024-10-20] MEDS: OXYCODONE IR 5 MG TABLET 15 MG PO ×3 (02:13→10:07)
[2024-10-20 06:29] LABS: Add Manual Diff / Slide Review NO; Basophils Absolute Auto 100 /uL (0-100); Basophils Percent Auto 0.6 % (0-2); Eosinophils Absolute Auto 100 /uL (0-450); Eosinophils Percent Auto 0.7 % (2-4); Hematocrit 36.3 % (41-53); Hemoglobin 12.5 g/dL (13.5-17.5); Lymphocytes Absolute Auto 1800 /uL (1100-4500); Lymphocytes Percent Auto 18.4 % (25-40); Mean Corpuscular HGB Conc 34.4 % (30-36); Mean Corpuscular Hemoglobin 29.7 PG (26-34); Mean Corpuscular Volume 86.3 fL (80-100); Monocytes Absolute Auto 800 /uL (0-900); Monocytes Percent Auto 8.7 % (3-14); Neutrophils Absolute Auto 6800 /uL (1500-7000); Neutrophils Percent Auto 71.6 % (50-75); Platelet Count 160 X10^3/uL (150-400); Red Cell Distribution Width 13.5 % (11.6-14.8); White Blood Cell Count 9.5 X10^3/uL (4.5-11.0)
[2024-10-20 06:41] LABS: BUN Creatinine Ratio 14.9 (6-22); Blood Urea Nitrogen 11 mg/dL (9-20); Calcium 8.7 mg/dL (8.4-10.2); Carbon Dioxide 29 mmol/L (22-32); Chloride 99 mmol/L (98-107); Estimated Glomerular Filt Rate > 60 mL/min (>60); Glucose 110 mg/dL (70-99); HEMOLYSIS < 15 (0-50); Potassium 3.8 mmol/L (3.4-5.1); Sodium 135 mmol/L (137-145)
[2024-10-20] MEDS: VANCOMYCIN 1,250 MG/250 ML PIGGYBACK 166.667 MG IV (07:47)
[2024-10-20 08:00] VITALS: PULSE 71; RESP 20; TEMP 36.4; O2SAT 99
--- NOTE | 2024-10-20 08:48 | PM.DS.1 ---
History of Present Illness History of Present Illness Date Patient Seen: 10/20/24 Time Patient Seen: 08:48 Chief complaint: Lt leg pain, celulitis Narrative: Per admitting provider, 33 y/o with PMH of opiates and methamphetamine use, smoking, prior visits to ER with abscesses and cellulitis or arm and leg, came with left leg swelling, redness and pain. Denies recent injuries or drug injections. It started at ankle and overnight spread up to thigh. Afebrile, not septic. CBC shows leukocytosis at 11.3 with neutrophils at 82.1. Minor anemia at 12.9 and 37.5, minimally elevated AST and ALT at 77 and 155 respectively, procalcitonin is not significantly elevated, lactic acid is not elevated. LLE venous doppler negative for DVT. Admitted to medicine with LLE cellulitis requiring IV antibiotics. Discharge Providers Provider Date of admission: 10/19/24 20:57 Discharge Date: 10/20/24 Primary care physician: Doctor Vani MD Discharge provider: Shakeel Patel DO Summary Hospital Course Discharge Diagnosis: (1) Left leg cellulitis: (2) Opioid use disorder: (3) Methamphetamine use disorder, severe: (4) Smoker: Hospital Course: Is a 33-year-old male with a past medical history of substance use disorder who presented with an extensive left leg cellulitis. He was given ceftriaxone and vancomycin in the emergency room with rapid improvement in swelling, redness, and pain. He had no evidence for ongoing sepsis, with normal white blood cell count shortly after admission. After discussion with the patient regarding continued IV antibiotics In the hospitalversus discharge home with oral antibiotics, patient elected for discharge home. Given his substance use he is at a higher risk for MRSA infection so he will discharge on 10 more days of cephalexin and doxycycline. Time Spent with Patient Time spent: Less than 30 minutes Exam Vital Signs (past 8 hours): - 10/20/24 08:00 Temperature 97.5 F L Pulse Rate 71 Respiratory Rate 20 Pulse Oximetry 99 Oxygen Flow Rate 0 Oxygen Delivery Method Room Air Oxygen Flow Rate 0 Narrative Exam Narrative: General - in no distress Ext - Extensive, circumferential LLE cellulitis with lymphangitic streaks reaching the groin CVS - RRR RS - CTA Neuro - lucid, w/o deficits, mild anxiety Objective Labs 10/20/24 06:15 10/20/24 06:15 Labs: Laboratory Results - last 24 hr 10/19/24 10/20/24 19:25 06:15 WBC 11.3 H 9.5 RBC 4.39 L 4.20 L Hgb 12.9 L 12.5 L Hct 37.5 L 36.3 L MCV 85.4 86.3 MCH 29.3 29.7 MCHC 34.3 34.4 RDW 13.0 13.5 Plt Count 168 160 Neut % (Auto) 82.1 H 71.6 Lymph % (Auto) 11.8 L 18.4 L [place] % (Auto) 5.6 8.7 Eos % (Auto) 0.2 L 0.7 L Baso % (Auto) 0.3 0.6 Neut # (Auto) 9300 H 6800 Lymph # (Auto) 1300 1800 [place] # (Auto) 600 800 Eos # (Auto) 0 100 Baso # (Auto) 0 100 Sodium 131 L 135 L Potassium 3.6 3.8 Chloride 98 99 Carbon Dioxide 26 29 BUN 11 11 Creatinine 0.80 0.74 Estimated GFR > 60 > 60 BUN/Creatinine Ratio 13.8 14.9 Glucose 118 H 110 H Lactate 0.9 Calcium 8.5 8.7 Total Bilirubin 0.6 AST 77 H ALT 155 H Alkaline Phosphatase 122 Total Protein 6.7 Albumin 3.7 Globulin 3.0 Albumin/Globulin Ratio 1.2 Procalcitonin 0.156 PFSH Medical History Abscess, neck Strep pharyngitis Social History household members: none Smoking Status: Current every day smoker alcohol intake: current Discharge Plan Discharge Plan Patient Disposition: Home Provider Discharge Comment: You were admitted to the hospital with a left leg cellulitis. Improving with anitbiotics, stable for outpatient treatment. Please try to follow up with a PCP prior to completion of Discharge orders & Medications Prescriptions: New oxycodone 10 mg tablet 10 mg PO Q3H PRN (Reason: Pain, Moderate (4-6)) 7 Days Qty: 25 0RF cephalexin 500 mg tablet 500 mg PO QID 10 Days Qty: 40 0RF doxycycline hyclate 100 mg tablet 100 mg PO BID 10 Days Qty: 20 0RF Follow up/Referrals: Miscellaneous,Doctor, MD [Primary Care Provider] - Diet/Activity/Treatments Diet: Diet as Tolerated and Regular Activity: As tolerated, no restrictions Visit Report/Discharge Packet Instructions: DI for Cellulitis -- Adult, DI for Opioid Use Disorder Stand Alone Forms: Patient Portal/API, Stroke Signs & Symptoms Discharge Data Primary Care Provider: Vani,Doctor Quality [facility]TE Deep Vein Thrombosis/Pulmonary Embolism Present on Admission: No
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
== END 2024-10-20 10:31 | disposition home or self-care (01) ==
LOC: ED 18:37 → AC 20:55
PROVIDERS: Admitting Provider Internal Medicine; Emergency Provider Emergency Medicine; Referring Provider Emergency Medicine; Visit Provider Internal Medicine
DX: L03.116 Cellulitis of left lower limb (principal); F17.200 Nicotine dependence, unspecified, uncomplicated; F11.90 Opioid use, unspecified, uncomplicated; F15.90 Other stimulant use, unspecified, uncomplicated; Z59.10 Inadequate housing, unspecified
CPT/HCPCS: 36415; 80048; 80053; 83605; 84145; 85025; 87040; 93971; 96365; 96367; 96372; 96375; 99283; 99284; G0378; J0696